=== PATIENT | female | born 1945 | race Caucasian/White ===

== ENCOUNTER → 2018-10-18 | Outpatient (CLI) | payer MEDICARE, OTHER ==
[2015-11-09 20:12] VITALS: BP 170/74
--- NOTE | 2018-10-18 13:51 | RAD ---
PQRS Compliance statement: One or more of the following individualized dose reduction techniques were utilized for this examination: 1. Automated exposure control. 2. Adjustment of the mA and/or kV according to patient size. 3. Use of iterative reconstruction technique. Indication:CONTUSION OF SCALP PALLET FELL ON OCCIPITAL AREA LAST NIGHT NO PREV CHINO TECHNIQUE: CT head without IV contrast COMPARISON:None FINDINGS: No pathologic extra-axial or intra-axial fluid collection. The ventricles and basal cisterns are within normal limits. No acute intracranial bleed. Orbits are within normal limits. No large scalp hematoma. Diffuse osteopenia of the calvarium. No acute calvarial fractures. The paranasal sinuses and mastoid air cells are clear. IMPRESSION: No acute intracranial bleed or calvarial fracture. Electronically signed by: Edgard Harp DO (10/18/2018 1:48 PM) [id number]
== END | disposition home or self-care (01) ==
LOC: CT 13:07
DX: S00.03XA Contusion of scalp, initial encounter (principal); W19.XXXA Unspecified fall, initial encounter; Y93.89 Activity, other specified; Y92.89 Other specified places as the place of occurrence of the external cause; Y99.8 Other external cause status
CPT/HCPCS: 70450